=== PATIENT | female | born 1980 | race Caucasian/White ===

== ENCOUNTER 2020-09-23 09:35 | Emergency (ER) | payer MEDICAID, OTHER ==
[~2020-09-23] VITALS: Ht 162.6 cm; Wt 74.8 kg
[2020-09-23] MEDS ORDERED: ACETAMINOPHEN 325 MG TABLET PO ONE (09:45)
[2020-09-23] MEDS ORDERED: NEOMY/BACITRA/POLYMYXIN B OINT UD PACKET TP ONE ×2 (09:45→09:53)
[2020-09-23] MEDS ORDERED: ACETAMINOPHEN 325 MG TABLET ONE (09:53)
== END 2020-09-23 10:24 | disposition home or self-care (01) ==
LOC: ER 09:37
DX: S60.222A Contusion of left hand, initial encounter (principal); S60.512A Abrasion of left hand, initial encounter; V49.40XA Driver injured in collision with unspecified motor vehicles in traffic accident, initial encounter; Y92.414 Local residential or business street as the place of occurrence of the external cause
CPT/HCPCS: 73130; A4663